=== PATIENT | male | born 1995 | race Caucasian/White ===

== ENCOUNTER 2017-08-13 08:38 | Inpatient (IN) | payer OTHER ==
[~2017-08-13] VITALS: Ht 180.3 cm; Wt 140.6 kg
[2017-08-13] MEDS ORDERED: MORPHINE SULFATE 4 MG/ML DISP.SYRIN. IV/SQ PRN (09:00)
[2017-08-13] MEDS ORDERED: ASPIRIN 325 MG TABLET PO ONE (09:00)
[2017-08-13] MEDS ORDERED: IV NORMAL SALINE 1000ML BAG 1,000 ML IV ONE ×2 (09:00→14:45)
[2017-08-13] MEDS ORDERED: MORPHINE SULFATE 4 MG/ML DISP.SYRIN. ONE (09:02)
[2017-08-13 09:04] LABS: BASO # 0.1 x10^3/uL (0.0-0.2); BASO % 1 % (0-3); EOS % 0 % (0-3); HEMATOCRIT 48.1 % (39.0-53.0); HEMOGLOBIN 16.8 g/dL (13.0-17.5); LYMPH % 18 % (24-48); MEAN CORPUSCULAR HEMOGLOBIN 29 pg (25-35); MEAN CORPUSCULAR HGB CONC 35 g/dL (31-37); MEAN CORPUSCULAR VOLUME 83 fL (79-100); MONO % 7 % (0-9); NEUT % 74 % (31-73); PLATELET COUNT 255 x10^3/uL (140-400); RED BLOOD COUNT 5.83 x10^6/uL (4.30-5.70); RED CELL DISTRIBUTION WIDTH 12.7 % (11.5-14.5); WHITE BLOOD COUNT 16.3 x10^3/uL (4.0-11.0)
[2017-08-13 09:14] LABS: INR 1.1 (0.8-1.1); PROTHROMBIN TIME PATIENT 13.7 SEC (11.7-14.0)
[2017-08-13 09:15] LABS: CALCIUM 9.4 mg/dL (8.5-10.1); CREATININE 1.1 mg/dL (0.7-1.3); GFR 82.2; POTASSIUM 3.4 mmol/L (3.5-5.1)
--- NOTE | 2017-08-13 09:17 | RAD ---
Chest, 2 views, 08/13/2017: History: Mid chest pain The heart size and pulmonary vascularity are normal. No pulmonary infiltrates are seen. There is no evidence of pleural fluid. IMPRESSION: No acute cardiopulmonary abnormality is detected.
--- NOTE | 2017-08-13 09:20 | EKG ---
[facility] [address] [place] [address] Test Date: 2017-08-13 Test Time: 08:45:21 Pat Name: MAHI MIN Department: Room: Gender: M Joint Cutter: : 1995 Requested By: ASHLEY DUARTE Order Number: [id number] Reading MD: Alber Lee Measurements Intervals Standard Rate: 106 P: 56 OR: 150 QRS: 21 QRSD: 126 T: -8 QT: 344 QTc: 459 Interpretive Statements SINUS TACHYCARDIA RIGHT BUNDLE BRANCH BLOCK Electronically Signed On 09-02-2017 16:49:20 CDT by Alber Lee
[2017-08-13 09:26] LABS: ALBUMIN 4.1 g/dL (3.4-5.0); ALBUMIN/GLOBULIN RATIO 0.8 (1.0-1.7); TOTAL BILIRUBIN 1.1 mg/dL (0.2-1.0)
[2017-08-13] MEDS ORDERED: IOHEXOL 300 MG/ML 75 ML VIAL IV ONE ×2 (10:30)
[2017-08-13] MEDS ORDERED: CONTRAST GIVEN MC PRN ×2 (10:30→14:15)
--- NOTE | 2017-08-13 11:29 | RAD ---
CTA of the chest with contrast, 08/13/2017: History: Chest pain Multidetector CT imaging was performed following an IV bolus injection of iodinated contrast material. Multiplanar reconstructions were produced. The degree of opacification of the pulmonary arteries is inadequate, apparently due to technical factors including patient size. Linear lucencies related to the ascending aorta are probably pulsation artifacts. There is soft tissue thickening along the left side of the main pulmonary artery suggesting intraluminal thrombus. No definite extension into the right or left main pulmonary arteries is seen. There is also a linear opacity in the medial aspect of the main pulmonary artery. The appearance suggests a web moreso than a pulsation artifact. Evaluation of the lobar and segmental pulmonary arteries is inadequate due to the poor contrast enhancement. No mediastinal adenopathy is seen. No pulmonary infiltrate is evident. There is no evidence of pleural fluid. IMPRESSION: 1. Abnormal soft tissue density within the left side of the main pulmonary artery suggesting mural thrombus. An additional linear lucency in the main pulmonary artery may be a web. The combination of findings suggest old or chronic pulmonary embolic disease. 2. Overall evaluation of the pulmonary arteries is inadequate due to poor contrast enhancement. Distal pulmonary emboli cannot be excluded on this study. Depending on the patient's renal function, this study could be repeated in attempt to better opacify the pulmonary arteries. Alternatively, VQ scanning may be helpful. PQRS Compliance Statement: One or more of the following individualized dose reduction techniques were utilized for this examination: 1. Automated exposure control 2. Adjustment of the mA and/or kV according to patient size 3. Use of iterative reconstruction technique
--- NOTE | 2017-08-13 11:31 | PHYS DOC ---
Past Medical History Past Medical History: No Pertinent History Past Surgical History: Other Additional Past Surgical Histo: Tubes in ears as child. Alcohol Use: Occasionally Drug Use: None Adult General Chief Complaint Chief Complaint: CHEST PAIN HPI HPI Patient is a 22 year old male who presents with chest pain. Patient reports onset of pain 2 days ago while at rest, occurring intermittently and sat time. He states pain is sharp/pressure-like to substernal chest with radiation to left arm, also reports shortness of breath and pain with deep breathing. Denies fevers or chills, cough, nausea or vomiting, diaphoresis, lower extremity pain or swelling. Denies previous history of similar symptoms. Nonsmoker, denies street drugs. No recent travel or immobilization. Father has history of CAD with stent placement 30s. History of CAD in grandparents on both sides of the family. He himself has no history of heart disease or DVT/PE. Does not have a primary care physician. Review of Systems Review of Systems Constitutional: Denies fever or chills Eyes: Denies change in visual acuity HENT: Denies nasal congestion or sore throat Respiratory: Denies cough, reports shortness of breath Cardiovascular: Reports chest pain, denies edema GI: Denies abdominal pain, nausea, vomiting, bloody stools or diarrhea Musculoskeletal: Denies back pain or joint pain Integument: Denies rash or skin lesions Neurologic: Denies headache, focal weakness or sensory changes Current Medications Current Medications Current Medications Medications (Trade) Dose Ordered Sig/Alexy Start Time Stop Time Status Last Admin Dose Admin Aspirin (Elliott Aspirin) 325 mg 1X ONCE 08/13/17 09:00 08/13/17 09:02 DC 08/13/17 09:07 325 MG Morphine Sulfate 4 mg STK-MED ONCE 08/13/17 09:02 08/13/17 09:03 DC Sodium Chloride 1,000 ml @ 1,000 mls/hr 1X ONCE 08/13/17 09:00 08/13/17 09:59 DC 08/13/17 09:08 1,000 MLS/HR Allergies Allergies Allergies Coded Allergies Type Severity Reaction Last Updated Verified No Known Drug Allergies 10/04/15 No Physical Exam Physical Exam Constitutional: Obese, no acute distress, non-toxic appearance. HENT: Normocephalic, atraumatic, bilateral external ears normal, oropharynx moist, nose normal. Eyes: conjunctiva normal, no discharge. Neck: supple, no stridor. Cardiovascular: RRR, no murmurs, no edema. Lungs & Thorax: LCTAB, no wheezing, no respiratory distress. No reproducible tenderness with palpation over sternum and left anterior chest wall. Abdomen: soft, nontender, nondistended. Skin: Warm, dry, no erythema, no rash. Back: No tenderness. Extremities: No tenderness, no edema. Calf tenderness or swelling, distal pulses palpable and lower extremities Neurologic: Alert and oriented X 3, no focal deficits noted. Psychologic: Affect normal, judgement normal, mood normal. Current Patient Data Vital Signs Vital Signs Date Time Temp Pulse Resp B/P (MAP) Pulse Ox O2 Delivery O2 Flow Rate FiO2 08/13/17 09:17 100 20 146/86 (106) 96 Room Air 08/13/17 08:52 98.2 98.2 Lab Values Laboratory Tests Test 08/13/17 08:50 White Blood Count 16.3 x10^3/uL (4.0-11.0) H Red Blood Count 5.83 x10^6/uL (4.30-5.70) H Hemoglobin 16.8 g/dL (13.0-17.5) Hematocrit 48.1 % (39.0-53.0) Mean Corpuscular Volume 83 fL (79-100) Mean Corpuscular Hemoglobin 29 pg (25-35) Mean Corpuscular Hemoglobin Concent 35 g/dL (31-37) Red Cell Distribution Width 12.7 % (11.5-14.5) Platelet Count 255 x10^3/uL (140-400) Neutrophils (%) (Auto) 74 % (31-73) H Lymphocytes (%) (Auto) 18 % (24-48) L Monocytes (%) (Auto) 7 % (0-9) Eosinophils (%) (Auto) 0 % (0-3) Basophils (%) (Auto) 1 % (0-3) Neutrophils # (Auto) 12.0 x10^3uL (1.8-7.7) H Lymphocytes # (Auto) 3.0 x10^3/uL (1.0-4.8) Monocytes # (Auto) 1.2 x10^3/uL (0.0-1.1) H Eosinophils # (Auto) 0.1 x10^3/uL (0.0-0.7) Basophils # (Auto) 0.1 x10^3/uL (0.0-0.2) Prothrombin Time 13.7 SEC (11.7-14.0) Prothrombin Time INR 1.1 (0.8-1.1) PTT 29 SEC (24-38) D-Dimer (Juana) 0.27 ug/mlFEU (0.00-0.50) Sodium Level 137 mmol/L (136-145) Potassium Level 3.4 mmol/L (3.5-5.1) L Chloride Level 100 mmol/L (98-107) Carbon Dioxide Level 29 mmol/L (21-32) Anion Gap 8 (6-14) Blood Urea Nitrogen 13 mg/dL (8-26) Creatinine 1.1 mg/dL (0.7-1.3) Estimated GFR (Cockcroft-Gault) 82.2 BUN/Creatinine Ratio 12 (6-20) Glucose Level 136 mg/dL (70-99) H Calcium Level 9.4 mg/dL (8.5-10.1) Magnesium Level 2.0 mg/dL (1.8-2.4) Total Bilirubin 1.1 mg/dL (0.2-1.0) H Aspartate Amino Transferase (AST) 13 U/L (15-37) L Alanine Aminotransferase (ALT) 40 U/L (16-63) Alkaline Phosphatase 90 U/L (46-116) Troponin I Quantitative < 0.017 ng/mL (0.000-0.055) BZ-Ykn-U-Type Natriuretic Peptide 57 pg/mL (0-124) Total Protein 9.0 g/dL (6.4-8.2) H Albumin 4.1 g/dL (3.4-5.0) Albumin/Globulin Ratio 0.8 (1.0-1.7) L Laboratory Tests 08/13/17 08:50 Laboratory Tests 08/13/17 08:50 EKG EKG Interpreted by me: Intraventricular block with T-wave inversions without ST depression in leads V1 through V4, as well as inferior T-wave inversions without ST depression in leads 3 and aVF, no ST elevation, no ectopy. No previous EKG available for comparison.[] Radiology/Procedures Radiology/Procedures PROCEDURE: CHEST PA & LATERAL Chest, 2 views, 08/13/2017: History: Mid chest pain The heart size and pulmonary vascularity are normal. No pulmonary infiltrates are seen. There is no evidence of pleural fluid. IMPRESSION: No acute cardiopulmonary abnormality is detected. DICTATED and SIGNED BY: FRANCES MENDOZA MD DATE: 08/13/17 0914[] Course & Med Decision Making Course & Med Decision Making Pertinent Labs and Imaging studies reviewed. (See chart for details) The patient presents with chest pain. Gave aspirin upon arrival as well as IV fluids. Obtained labs, EKG, CXR. EKG shows abnormal conduction pattern without old EKG for comparison. Negative troponin & CXR. He had ongoing pain & tachycardia. Recommend admission for further evaluation & treatment. He agrees of plan. CT angiogram of the chest pending at time of admission. Discussed with Dr. Beckwith of cardiology who cares for several family members , & he agrees with admission & will consult. Discussed with Dr. Ramírez who agrees to admit to inpatient status. The patient is admitted in stable condition. [] Dragon Disclaimer Dragon Disclaimer This electronic medical record was generated, in whole or in part, using a voice recognition dictation system. Departure Departure Impression: Primary Impression: Chest pain Additional Impression: Tachycardia Disposition: ADMITTED INPATIENT Admitting Physician: Opal Ramírez Condition: STABLE Referrals: NO PCP (PCP) Problem Qualifiers ASHLEY DUARTE MD Aug 13, 2017 11:31
[2017-08-13 11:35] VITALS: BP 144/75
[2017-08-13 11:36] VITALS: BP 144/75
[2017-08-13] MEDS ORDERED: ONDANSETRON PF 4 MG/2 ML VIAL. IV PRN (11:45)
[2017-08-13] MEDS ORDERED: ACETAMINOPHEN 325 MG TABLET. PO PRN (11:45)
[2017-08-13] MEDS ORDERED: ONDANSETRON ODT 4 MG TAB.RAPDIS. PO PRN (11:45)
[2017-08-13] MEDS ORDERED: POTASSIUM CHLORIDE 20 MEQ TABLET.ER. PO ONE (11:45)
[2017-08-13 11:49] LABS: BARBITURATES NEG (NEG); BENZODIAZEPINES NEG (NEG); CANNABINOIDS NEG (NEG); COCAINE NEG (NEG); METHADONE NEG (NEG); OPIATES POS (NEG); PHENCYCLIDINE NEG (NEG)
--- NOTE | 2017-08-13 11:55 | PDOC1 ---
History and Physical Date of Admission Date of Admission DATE: 08/13/17 TIME: 11:50 Identification/Chief Complaint Chief Complaint chest pain Problems: Source Source: Caregiver, Chart review, Patient History of Present Illness History of Present Illness 22 y.o obese male with no past medical no meds at home, but strong family hx, father had CABG and first heart attack at age 40s, started to have CP left sided to midsternal 2 days ago, 10./10 sharp, at rest, lasting hrs, claims could not catch his breath when that happened, no presyncopal sxs, no diaphoresis, Admitted hence forth for r.o ACS given strong fam hx, NO relief with morphine, radiated maybe to RT shoulder and abd. NO smokes, occasional drinker. CTA done shows ? mural thrombus or old PE. Pt denies recent long travels, surgery or past visits to urgent care or that nature for SOA or something similar. ABout to get lovenox therapeutic dose pending eval. Past Medical History Cardiovascular: No pertinent hx Pulmonary: No pertinent hx GI: No pertinent hx Heme/Onc: No pertinent hx Hepatobiliary: No pertinent hx Psych: No pertinent hx Rheumatologic: No pertinent hx Infectious disease: No pertinent hx ENT: No pertinent hx Renal/: No pertinent hx Endocrine: No pertinent hx Dermatology: No pertinent hx Past Surgical History Past Surgical History: No pertinent history Family History Family History: Heart Disease Social History Smoke: No ALCOHOL: occassional Drugs: None Current Problem List Problem List Problems Medical Problems: (1) Tachycardia Status: Acute Problems: Current Medications Current Medications Current Medications Aspirin (Elliott Aspirin) 325 mg 1X ONCE PO Last administered on 08/13/17 09:07 ; Start 08/13/17 at 09:00; Stop 08/13/17 at 09:02; Status DC Morphine Sulfate 4 mg PRN Q15MIN PRN IV/SQ PAIN GREATER THAN 3/10 Last administered on 08/13/17 09:07; Start 08/13/17 at 09:00; Stop 08/14/17 at 08:59 Sodium Chloride 1,000 ml @ 1,000 mls/hr 1X ONCE IV Last administered on 09:08; Start 08/13/17 at 09:00; Stop 08/13/17 at 09:59; Status DC Morphine Sulfate 4 mg STK-MED ONCE .ROUTE ; Start 08/13/17 at 09:02; Stop at 09:03; Status DC Iohexol (Omnipaque 300 Mg/ml) 75 ml 1X ONCE IV Last administered on 08/13/17t 10:38; Start 08/13/17 at 10:30; Stop 08/13/17 at 10:31; Status DC Iohexol (Omnipaque 300 Mg/ml) 75 ml 1X ONCE IV ; Start 08/13/17 at 10:30; Stop 08/13/17 at 10:31; Status DC Info (Do NOT chart on this entry -- for MONITORING) 1 each PRN DAILY PRN MC SEE COMMENTS; Start 08/13/17 at 10:30; Stop 08/15/17 at 10:29 Enoxaparin Sodium (Lovenox Per Pharmacy Treatment Dosing) 1 each PRN DAILY PRN MC SEE COMMENTS; Start 08/13/17 at 11:45 Enoxaparin Sodium (Lovenox 150mg Syringe) 140 mg BID SQ ; Start 08/13/17 at 12: 00 Allergies Allergies: Coded Allergies: No Known Drug Allergies (Unverified , 10/04/15) ROS Review of System as per HPI, all else is neg 14 pt reviewed Physical Exam General: Alert, Oriented X3, Cooperative, No acute distress HEENT: Atraumatic, PERRLA, EOMI Lungs: Clear to auscultation, Normal air movement Heart: S1S2, RRR, no thrills, no rubs, no gallops, no murmurs Cardiovascular: S1, S2 Abdomen: Normal bowel sounds, Soft, No tenderness, No hepatosplenomegaly, No masses Male Genitals Exam: normal genitalia, normal prostate Rectal Exam: not examined PELVIC: Nml ext genitalia Extremities: No clubbing, No cyanosis, No edema, Normal pulses, No tenderness/ swelling Skin: No rashes, No breakdown, No significant lesion Neuro: Normal gait Psych/Mental Status: Mental status NL, Mood NL Vitals Vitals Vital Signs Date Time Temp Pulse Resp B/P (MAP) Pulse Ox O2 Delivery O2 Flow Rate FiO2 08/13/17 11:36 98.2 101 20 144/75 (98) 96 Room Air 98.2 Labs Labs Laboratory Tests Test 08/13/17 08:50 White Blood Count 16.3 x10^3/uL (4.0-11.0) Red Blood Count 5.83 x10^6/uL (4.30-5.70) Hemoglobin 16.8 g/dL (13.0-17.5) Hematocrit 48.1 % (39.0-53.0) Mean Corpuscular Volume 83 fL (79-100) Mean Corpuscular Hemoglobin 29 pg (25-35) Mean Corpuscular Hemoglobin Concent 35 g/dL (31-37) Red Cell Distribution Width 12.7 % (11.5-14.5) Platelet Count 255 x10^3/uL (140-400) Neutrophils (%) (Auto) 74 % (31-73) Lymphocytes (%) (Auto) 18 % (24-48) Monocytes (%) (Auto) 7 % (0-9) Eosinophils (%) (Auto) 0 % (0-3) Basophils (%) (Auto) 1 % (0-3) Neutrophils # (Auto) 12.0 x10^3uL (1.8-7.7) Lymphocytes # (Auto) 3.0 x10^3/uL (1.0-4.8) Monocytes # (Auto) 1.2 x10^3/uL (0.0-1.1) Eosinophils # (Auto) 0.1 x10^3/uL (0.0-0.7) Basophils # (Auto) 0.1 x10^3/uL (0.0-0.2) Prothrombin Time 13.7 SEC (11.7-14.0) Prothromb Time International Ratio 1.1 (0.8-1.1) Activated Partial Thromboplast Time 29 SEC (24-38) D-Dimer (Juana) 0.27 ug/mlFEU (0.00-0.50) Sodium Level 137 mmol/L (136-145) Potassium Level 3.4 mmol/L (3.5-5.1) Chloride Level 100 mmol/L (98-107) Carbon Dioxide Level 29 mmol/L (21-32) Anion Gap 8 (6-14) Blood Urea Nitrogen 13 mg/dL (8-26) Creatinine 1.1 mg/dL (0.7-1.3) Estimated GFR (Cockcroft-Gault) 82.2 BUN/Creatinine Ratio 12 (6-20) Glucose Level 136 mg/dL (70-99) Calcium Level 9.4 mg/dL (8.5-10.1) Magnesium Level 2.0 mg/dL (1.8-2.4) Total Bilirubin 1.1 mg/dL (0.2-1.0) Aspartate Amino Transf (AST/SGOT) 13 U/L (15-37) Alanine Aminotransferase (ALT/SGPT) 40 U/L (16-63) Alkaline Phosphatase 90 U/L (46-116) Troponin I Quantitative < 0.017 ng/mL (0.000-0.055) YA-Qsp-Y-Type Natriuretic Peptide 57 pg/mL (0-124) Total Protein 9.0 g/dL (6.4-8.2) Albumin 4.1 g/dL (3.4-5.0) Albumin/Globulin Ratio 0.8 (1.0-1.7) Laboratory Tests Test 08/13/17 08:50 White Blood Count 16.3 x10^3/uL (4.0-11.0) Red Blood Count 5.83 x10^6/uL (4.30-5.70) Hemoglobin 16.8 g/dL (13.0-17.5) Hematocrit 48.1 % (39.0-53.0) Mean Corpuscular Volume 83 fL (79-100) Mean Corpuscular Hemoglobin 29 pg (25-35) Mean Corpuscular Hemoglobin Concent 35 g/dL (31-37) Red Cell Distribution Width 12.7 % (11.5-14.5) Platelet Count 255 x10^3/uL (140-400) Neutrophils (%) (Auto) 74 % (31-73) Lymphocytes (%) (Auto) 18 % (24-48) Monocytes (%) (Auto) 7 % (0-9) Eosinophils (%) (Auto) 0 % (0-3) Basophils (%) (Auto) 1 % (0-3) Neutrophils # (Auto) 12.0 x10^3uL (1.8-7.7) Lymphocytes # (Auto) 3.0 x10^3/uL (1.0-4.8) Monocytes # (Auto) 1.2 x10^3/uL (0.0-1.1) Eosinophils # (Auto) 0.1 x10^3/uL (0.0-0.7) Basophils # (Auto) 0.1 x10^3/uL (0.0-0.2) Prothrombin Time 13.7 SEC (11.7-14.0) Prothromb Time International Ratio 1.1 (0.8-1.1) Activated Partial Thromboplast Time 29 SEC (24-38) D-Dimer (Juana) 0.27 ug/mlFEU (0.00-0.50) Sodium Level 137 mmol/L (136-145) Potassium Level 3.4 mmol/L (3.5-5.1) Chloride Level 100 mmol/L (98-107) Carbon Dioxide Level 29 mmol/L (21-32) Anion Gap 8 (6-14) Blood Urea Nitrogen 13 mg/dL (8-26) Creatinine 1.1 mg/dL (0.7-1.3) Estimated GFR (Cockcroft-Gault) 82.2 BUN/Creatinine Ratio 12 (6-20) Glucose Level 136 mg/dL (70-99) Calcium Level 9.4 mg/dL (8.5-10.1) Magnesium Level 2.0 mg/dL (1.8-2.4) Total Bilirubin 1.1 mg/dL (0.2-1.0) Aspartate Amino Transf (AST/SGOT) 13 U/L (15-37) Alanine Aminotransferase (ALT/SGPT) 40 U/L (16-63) Alkaline Phosphatase 90 U/L (46-116) Troponin I Quantitative < 0.017 ng/mL (0.000-0.055) UQ-Mse-M-Type Natriuretic Peptide 57 pg/mL (0-124) Total Protein 9.0 g/dL (6.4-8.2) Albumin 4.1 g/dL (3.4-5.0) Albumin/Globulin Ratio 0.8 (1.0-1.7) VTE Prophylaxis Ordered VTE Prophylaxis Devices: Yes VTE Pharmacological Prophylaxi: Yes Assessment/Plan Assessment/Plan 1. Chest pain, high risk/strong family hx 2. ?MUral thrombus vs old PE on CTA PLAN: Admit, 2 MN Cycle CE CArds consult Check d dimer and venous dopplers Get pulmo opinion re CTA findings Trial of fentanyl - did not like morphine Dw parents too at bedside and RN JES Pacheco MD Aug 13, 2017 11:55
--- NOTE | 2017-08-13 12:44 | RAD ---
Bilateral lower extremity venous ultrasound, 08/13/2017: History: Pulmonary emboli Duplex evaluation of the deep veins in the lower extremities was performed including grayscale, color-flow and spectral Doppler analysis. The femoral and popliteal veins demonstrate normal compressibility and normal responses to distal augmentation maneuvers. Color imaging of those vessels shows no evidence of intraluminal clot. The visualized deep veins in both calves are patent. IMPRESSION: There is no sonographic evidence of deep vein thrombosis in either lower extremity.
--- NOTE | 2017-08-13 13:58 | CONS ---
DATE OF CONSULTATION: 08/13/2017 ATTENDING PHYSICIAN: Dr. Ramírez. REASON FOR CONSULTATION: Possible pulmonary embolus, chest pain. HISTORY OF PRESENT ILLNESS: The patient is a 22-year-old obese male who has no significant past medical history. He presented to the hospital after he had complained of substernal chest pain with radiation to the right neck on Thursday. It happened after a meal. However, the patient had recurrent symptom again yesterday, which was not precipitated after a meal. He had midsternal chest pain. It was sharp. It made him a bit short of breath. He has no cough, no fever, no chills. No syncopal episode. He was seen in the Emergency Room. He has a strong family history of coronary artery disease, his father had a bypass at age [address] angiogram was performed. I have reviewed the CT of the chest. There was suboptimal contrast to the pulmonary arteries and technically was not a good quality study. The radiologist reported an abnormal soft tissue density within the left side of the main pulmonary artery suggesting mural thrombus. There was additional linear lucency in the main pulmonary artery was also suggested indicating a possibility of web. The patient has no prior thromboembolic disease. He works as a [employer] office. He states he is active and does not have a sedentary lifestyle. He was started on Lovenox full dose. Cardiology was also consulted and I have been asked to see him for further evaluation. No family history of thromboembolic disease. PAST MEDICAL HISTORY: Essentially unremarkable. PAST SURGICAL HISTORY: None. FAMILY HISTORY: Father had bypass grafting at age 42 and then had stents placed a few years later. ALLERGIES: None. REVIEW OF SYSTEMS: Twelve points is obtained. Pertinent positives discussed in history of present illness, otherwise noncontributory. All systems that were negative were reviewed as well. PHYSICAL EXAMINATION: GENERAL: He is awake, following commands. VITAL SIGNS: Blood pressure is stable, pulse ox 96% on room air, afebrile. HEENT: Sclerae nonicteric. NECK: Supple. LUNGS: Clear. CARDIOVASCULAR: Regular rate and rhythm. ABDOMEN: Soft, obese. EXTREMITIES: With no pitting edema. LABORATORY DATA: Reviewed. White cell count 16.3, hemoglobin 16.8, platelets 255. His D-dimer is 0.27. His chemistries with a BUN of 13 and a creatinine of 1.1. IMPRESSION: 1. Chest pain with abnormal CT chest. I have reviewed the CT chest and discussed with Dr Siddiqui.There was motion artifact and suboptimal contrast, which makes it difficult to better assess for definite thromboembolic disease. There was some abnormal soft tissue density within the main pulmonary artery suggesting old mural thrombus. There was an additional ?linear lucency in the right main pulmonary artery, which could be a web. The patient's D-dimer is normal, which has a very high negative predictive value for acute PE and clinically suspicion for any acute pulmonary emboli is low. In order to rule out any chronic thromboembolic disease a V/Q scan would be a better test. However since current abnormality is seen on main pulmonary artery, repeat CTA chest would be a better test to r/ o any motion artifact. 2. Chest pain. Cardiac etiology cannot be ruled out due to his strong family history of coronary artery disease. His father had coronary artery bypass graft at age 42 and then had stents placed again 3 years later. 3. No significant history of tobacco use. RECOMMENDATIONS: 1. Continue full dose Lovenox at present. 2. Obtain repeat CTA chest.d/w Dr Siddiqui. ok to give contrast same day. Will hydrate. 3. Further recommendations after review of CTA. 4. Pursue cardiac workup. 5. Echo to assess for pulmonary HTN/ He has no symptoms of chronic thromboembolic disease. Discussed with the patient's family and RN, and we will follow along with you. GUSTAVO MONGE MD DR: IESHA/marianne JOB#: [id number] / [id number] SAURABH
[2017-08-13] MEDS ORDERED: IOHEXOL 350 MG/ML 100 ML VIAL. IV ONE (14:15)
--- NOTE | 2017-08-13 15:29 | RAD ---
CT of the chest with contrast, 08/13/2017: History: Tachycardia, shortness of breath Multidetector CT imaging was performed following IV bolus injection of iodinated contrast material. Multiplanar reconstructions were produced including coronal and sagittal MIP images. Comparison is made to a study of earlier the same day. The central pulmonary artery opacification is better than on the prior exam. These images again demonstrate abnormal medium density along the left side of the main pulmonary artery probably representing chronic mural thrombus. There is a thin linear filling defect in the right lateral aspect of the main pulmonary artery suggesting a chronic web. The right and left main pulmonary arteries and the lobar pulmonary arteries show no filling defects. No definite emboli are seen in the segmental pulmonary arteries, although some of these vessels, particularly in the lung bases are not well opacified and are partially obscured by respiratory motion artifacts. A small lucency related to a suprahilar vessel on the right appears to be related to a pulmonary vein. Linear lucencies relating to the ascending aorta are probably pulsation artifacts. The heart is at the upper limits of normal in size. There is no evidence of pericardial fluid. No mediastinal or hilar adenopathy is seen. Evaluation of the lung parenchyma is compromised by respiratory motion artifacts and the non inspiratory nature of the CTA images. No definite infiltrate or mass is seen. There is no evidence of pleural fluid. IMPRESSION: 1. Redemonstration of abnormalities in the main pulmonary artery as described on the CTA study of earlier in the day, again suggesting old or chronic pulmonary embolic disease. 2. No definite acute pulmonary emboli are identified, although the smaller pulmonary arteries are not well delineated in this large patient. 3. Probable pulsation related artifacts in the ascending aorta. Echocardiography may be useful for confirmation, if clinically indicated. PQRS Compliance Statement: One or more of the following individualized dose reduction techniques were utilized for this examination: 1. Automated exposure control 2. Adjustment of the mA and/or kV according to patient size 3. Use of iterative reconstruction technique
[2017-08-13] MEDS ORDERED: HEPARIN for IV BOLUS 10,000 UNIT/10 ML VIAL. IV ONE (17:45)
[2017-08-13] MEDS ORDERED: HEPARIN 25,000UTS/500ML PREMIX 500 ML IV PRN (17:45)
--- NOTE | 2017-08-13 17:58 | EKG ---
[facility] [address] [place] [address] Test Date: 2017-08-13 Test Time: 17:46:22 Pat Name: MAHI MIN Department: Room: 260 1 Gender: M Construction Sales Manager: : 1995 Requested By: ASHLEY DUARTE Order Number: [id number] Reading MD: Kyle Cardozo Measurements Intervals [place] Rate: 89 P: 18 MS: 162 QRS: 19 QRSD: 136 T: -2 QT: 374 QTc: 456 Interpretive Statements SINUS RHYTHM RIGHT BUNDLE BRANCH BLOCK Electronically Signed On 09-03-2017 9:13:50 CDT by Kyle Cardozo
[2017-08-13] MEDS ORDERED: ANTI-COAG MONITOR BY PHARMACY. MC PRN (18:00)
--- NOTE | 2017-08-13 18:26 | CARD ---
APPROVED REPORT EXAM: Two-dimensional and M-mode echocardiogram with Doppler and color Doppler. Other Information Quality : Good INDICATION Chest Pain 2D DIMENSIONS RVDd3.0 (2.9-3.5cm)Left Atrium(2D)3.8 (1.6-4.0cm) IVSd1.3 (0.7-1.1cm)Aortic Root(2D)3.2 (2.0-3.7cm) LVDd4.4 (3.9-5.9cm)LVOT Diameter2.2 (1.8-2.4cm) PWd1.2 (0.7-1.1cm)LVDs2.8 (2.5-4.0cm) FS (%) 30.0 %SV56.2 ml LVEF(%)60.0 (>50%) Tricuspid Valve RAP [id number] Peak Gr.27mmHg [id number] LEFT VENTRICLE The left ventricle is normal size. There is mild concentric left ventricular hypertrophy. The left ve ntricular systolic function is normal and the ejection fraction is within normal range. The Ejection Fraction is 60%. There is normal LV segmental wall motion. The left ventricular diastolic function an d filling is normal for age. RIGHT VENTRICLE The right ventricle is normal size. The right ventricular systolic function is normal. ATRIA The left atrium size is normal. The right atrium size is normal. The interatrial septum is intact wit h no evidence for an atrial septal defect or patent foramen ovale as noted on 2-D or Doppler imaging. AORTIC VALVE The aortic valve is normal in structure and function. Doppler and Color Flow revealed no significant aortic regurgitation. There is no significant aortic valvular stenosis. MITRAL VALVE The mitral valve is normal in structure and function. There is no evidence of mitral valve prolapse. There is no mitral valve stenosis. Doppler and Color Flow revealed no mitral valve regurgitation note d. TRICUSPID VALVE The tricuspid valve is normal in structure Doppler and Color Flow revealed physiological tricuspid re gurgitation. The PA pressure was estimated at 30 mmHg. There is no tricuspid valve stenosis. PULMONIC VALVE The pulmonary valve is normal in structure and function. Doppler and Color Flow revealed no pulmonic valvular regurgitation. There is no pulmonic valvular stenosis. GREAT VESSELS The aortic root is normal in size. The ascending aorta is normal in size. There is no evidence of any abnormalities in the ascending aorta that would suggest a dissection. No calcifications or thickened areas were seen Very poor visualization of the pulmonary artery The IVC was not visualized. PERICARDIAL EFFUSION There is no evidence of significant pericardial effusion. Critical Notification Critical Value: No <Conclusion> There is mild concentric left ventricular hypertrophy. The left ventricular systolic function is normal and the ejection fraction is within normal range. The Ejection Fraction is 60%. The left ventricular diastolic function and filling is normal for age. The right ventricle is normal size. The left atrium size is normal. The right atrium size is normal. The interatrial septum is intact with no evidence for an atrial septal defect or patent foramen ovale as noted on 2-D or Doppler imaging. The aortic valve is normal in structure and function. The mitral valve is normal in structure and function. Doppler and Color Flow revealed physiological tricuspid regurgitation. The PA pressure was estimated at 30 mmHg. The pulmonary valve is normal in structure and function. The ascending aorta is normal in size. There is no evidence of any abnormalities in the ascending aor ta that would suggest a dissection. No calcifications or thickened areas were seen Very poor visualization of the pulmonary artery There is no evidence of significant pericardial effusion.
--- NOTE | 2017-08-13 18:59 | PDOC2 ---
CONSULT Date of Consult Date of Consult DATE: 08/13/17 TIME: 18:49 Reason for Consult Reason for Consult: Chest pain Referring Physician Referring Physician: Dr Ramírez Identification/Chief Complaint Chief Complaint Chest pain and dyspnea Problems: History of Present Illness Reason for Visit: This patient is a 22-year-old gentleman that has no past significant history of any medical problems. He denies any recent trauma to the chest. The patient has a very strong family history of MIs coronary artery disease and lung problems. His father had to have bypass surgery at the age of 41. The patient developed a left sided chest pain that was severe with associated significant dyspnea. He was brought to the emergency room where he was seen and examined. His EKG showed a right bundle branch block we do not know if this is normal or old since he never had an EKG before. A CT of the chest was done which showed a possible mural thrombus in the pulmonary artery which seems to be chronic and abnormalities were seen in the aorta that could not be differentiated between an aortic dissection or motion artifact. I saw the patient and got an echocardiogram which shows a normal left ventricular function, no apparent aortic dissection and the pulmonary artery pressure was estimated to be 30 mmHg. Past Medical History Cardiovascular: No pertinent hx Pulmonary: No pertinent hx GI: No pertinent hx Heme/Onc: No pertinent hx Hepatobiliary: No pertinent hx Psych: No pertinent hx Rheumatologic: No pertinent hx Infectious disease: No pertinent hx ENT: No pertinent hx Renal/: No pertinent hx Endocrine: No pertinent hx Dermatology: No pertinent hx Past Surgical History Past Surgical History: No pertinent history Family History Family History: Heart Disease Social History No ALCOHOL: occassional Drugs: None Current Problem List Problem List Problems Medical Problems: (1) Tachycardia Status: Acute Current Medications Current Medications Current Medications Aspirin (Elliott Aspirin) 325 mg 1X ONCE PO Last administered on 08/13/17 09:07 ; Start 08/13/17 at 09:00; Stop 08/13/17 at 09:02; Status DC Morphine Sulfate 4 mg PRN Q15MIN PRN IV/SQ PAIN GREATER THAN 3/10 Last administered on 08/13/17 09:07; Start 08/13/17 at 09:00; Stop 08/13/17 at 11:50 ; Status DC Sodium Chloride 1,000 ml @ 1,000 mls/hr 1X ONCE IV Last administered on 09:08; Start 08/13/17 at 09:00; Stop 08/13/17 at 09:59; Status DC Morphine Sulfate 4 mg STK-MED ONCE .ROUTE ; Start 08/13/17 at 09:02; Stop at 09:03; Status DC Iohexol (Omnipaque 300 Mg/ml) 75 ml 1X ONCE IV Last administered on 08/13/17 10:38; Start 08/13/17 at 10:30; Stop 08/13/17 at 10:31; Status DC Iohexol (Omnipaque 300 Mg/ml) 75 ml 1X ONCE IV Last administered on 08/13/17 14:49; Start 08/13/17 at 10:30; Stop 08/13/17 at 10:31; Status DC Info (Do NOT chart on this entry -- for MONITORING) 1 each PRN DAILY PRN MC SEE COMMENTS; Start 08/13/17 at 10:30; Stop 08/15/17 at 10:29 Enoxaparin Sodium (Lovenox Per Pharmacy Treatment Dosing) 1 each PRN DAILY PRN MC SEE COMMENTS; Start 08/13/17 at 11:45; Stop 08/13/17 at 17:47; Status DC Enoxaparin Sodium (Lovenox 150mg Syringe) 140 mg BID SQ Last administered on 12:45; Start 08/13/17 at 12:00; Stop 08/13/17 at 17:46; Status DC Acetaminophen (Tylenol) 650 mg PRN Q6HRS PRN PO pain MILD; Start 08/13/17 at 11 :45 Ondansetron HCl (Zofran) 4 mg PRN Q6HRS PRN IV NAUSEA/VOMITING; Start 08/13/17 at 11:45 Ondansetron HCl (Zofran Odt) 4 mg PRN Q6HRS PRN PO NAUSEA/VOMITING 1ST CHOICE; Start 08/13/17 at 11:45 Fentanyl Citrate (Fentanyl 2ml Vial) 50 mcg PRN Q2HR PRN IV PAIN SEVERE; Start 08/13/17 at 11:45 Potassium Chloride (Klor-Con) 40 meq 1X ONCE PO Last administered on 12:43; Start 08/13/17 at 11:45; Stop 08/13/17 at 11:51; Status DC Iohexol (Omnipaque 350 Mg/ml) 100 ml 1X ONCE IV ; Start 08/13/17 at 14:15; Stop 08/13/17 at 14:16; Status DC Info (Do NOT chart on this entry -- for MONITORING) 1 each PRN DAILY PRN MC SEE COMMENTS; Start 08/13/17 at 14:15; Stop 08/15/17 at 14:14 Sodium Chloride 1,000 ml @ 100 mls/hr 1X ONCE IV Last administered on 15:39; Start 08/13/17 at 14:45; Stop 08/14/17 at 00:44 Heparin Sodium/ Dextrose 500 ml @ 0 mls/hr CONT PRN IV SEE I/O RECORD Last administered on 08/13/17 18:20; Start 08/13/17 at 17:45 Heparin Sodium (Porcine) (Heparin Sodium) 5,000 unit 1X ONCE IV Last administered on 08/13/17 18:20; Start 08/13/17 at 17:45; Stop 08/13/17 at 17:49 ; Status DC Info (Anti-Coagulation Monitoring By Pharmacy) 1 each PRN DAILY PRN MC SEE COMMENTS; Start 08/13/17 at 18:00 Allergies Allergies: Coded Allergies: No Known Drug Allergies (Unverified , 10/04/15) Physical Exam General: Alert, Oriented X3, Cooperative HEENT: Atraumatic, PERRLA Lungs: Clear to auscultation Heart: Regular rate, Normal S1, Normal S2 Abdomen: Normal bowel sounds, Soft Extremities: No edema Psych/Mental Status: Mental status NL Vitals VITALS Vital Signs Date Time Temp Pulse Resp B/P (MAP) Pulse Ox O2 Delivery O2 Flow Rate FiO2 08/13/17 11:36 98.2 101 20 144/75 (98) 96 Room Air 98.2 Labs Labs Laboratory Tests Test 08/13/17 08:50 08/13/17 11:00 08/13/17 16:50 White Blood Count 16.3 x10^3/uL (4.0-11.0) Red Blood Count 5.83 x10^6/uL (4.30-5.70) Hemoglobin 16.8 g/dL (13.0-17.5) Hematocrit 48.1 % (39.0-53.0) Mean Corpuscular Volume 83 fL (79-100) Mean Corpuscular Hemoglobin 29 pg (25-35) Mean Corpuscular Hemoglobin Concent 35 g/dL (31-37) Red Cell Distribution Width 12.7 % (11.5-14.5) Platelet Count 255 x10^3/uL (140-400) Neutrophils (%) (Auto) 74 % (31-73) Lymphocytes (%) (Auto) 18 % (24-48) Monocytes (%) (Auto) 7 % (0-9) Eosinophils (%) (Auto) 0 % (0-3) Basophils (%) (Auto) 1 % (0-3) Neutrophils # (Auto) 12.0 x10^3uL (1.8-7.7) Lymphocytes # (Auto) 3.0 x10^3/uL (1.0-4.8) Monocytes # (Auto) 1.2 x10^3/uL (0.0-1.1) Eosinophils # (Auto) 0.1 x10^3/uL (0.0-0.7) Basophils # (Auto) 0.1 x10^3/uL (0.0-0.2) Prothrombin Time 13.7 SEC (11.7-14.0) Prothromb Time International Ratio 1.1 (0.8-1.1) Activated Partial Thromboplast Time 29 SEC (24-38) D-Dimer (Juana) 0.27 ug/mlFEU (0.00-0.50) Sodium Level 137 mmol/L (136-145) Potassium Level 3.4 mmol/L (3.5-5.1) Chloride Level 100 mmol/L (98-107) Carbon Dioxide Level 29 mmol/L (21-32) Anion Gap 8 (6-14) Blood Urea Nitrogen 13 mg/dL (8-26) Creatinine 1.1 mg/dL (0.7-1.3) Estimated GFR (Cockcroft-Gault) 82.2 BUN/Creatinine Ratio 12 (6-20) Glucose Level 136 mg/dL (70-99) Calcium Level 9.4 mg/dL (8.5-10.1) Magnesium Level 2.0 mg/dL (1.8-2.4) Total Bilirubin 1.1 mg/dL (0.2-1.0) Aspartate Amino Transf (AST/SGOT) 13 U/L (15-37) Alanine Aminotransferase (ALT/SGPT) 40 U/L (16-63) Alkaline Phosphatase 90 U/L (46-116) Troponin I Quantitative < 0.017 ng/mL (0.000-0.055) < 0.017 ng/mL (0.000-0.055) FK-Quk-L-Type Natriuretic Peptide 57 pg/mL (0-124) Total Protein 9.0 g/dL (6.4-8.2) Albumin 4.1 g/dL (3.4-5.0) Albumin/Globulin Ratio 0.8 (1.0-1.7) Urine Opiates Screen Pos (NEG) Urine Methadone Screen Neg (NEG) Urine Barbiturates Neg (NEG) Urine Phencyclidine Screen Neg (NEG) Urine Amphetamine/Methamphetamine Neg (NEG) Urine Benzodiazepines Screen Neg (NEG) Urine Cocaine Screen Neg (NEG) Urine Cannabinoids Screen Neg (NEG) Urine Ethyl Alcohol Neg (NEG) Laboratory Tests Test 08/13/17 08:50 08/13/17 11:00 08/13/17 16:50 White Blood Count 16.3 x10^3/uL (4.0-11.0) Red Blood Count 5.83 x10^6/uL (4.30-5.70) Hemoglobin 16.8 g/dL (13.0-17.5) Hematocrit 48.1 % (39.0-53.0) Mean Corpuscular Volume 83 fL (79-100) Mean Corpuscular Hemoglobin 29 pg (25-35) Mean Corpuscular Hemoglobin Concent 35 g/dL (31-37) Red Cell Distribution Width 12.7 % (11.5-14.5) Platelet Count 255 x10^3/uL (140-400) Neutrophils (%) (Auto) 74 % (31-73) Lymphocytes (%) (Auto) 18 % (24-48) Monocytes (%) (Auto) 7 % (0-9) Eosinophils (%) (Auto) 0 % (0-3) Basophils (%) (Auto) 1 % (0-3) Neutrophils # (Auto) 12.0 x10^3uL (1.8-7.7) Lymphocytes # (Auto) 3.0 x10^3/uL (1.0-4.8) Monocytes # (Auto) 1.2 x10^3/uL (0.0-1.1) Eosinophils # (Auto) 0.1 x10^3/uL (0.0-0.7) Basophils # (Auto) 0.1 x10^3/uL (0.0-0.2) Prothrombin Time 13.7 SEC (11.7-14.0) Prothromb Time International Ratio 1.1 (0.8-1.1) Activated Partial Thromboplast Time 29 SEC (24-38) D-Dimer (Juana) 0.27 ug/mlFEU (0.00-0.50) Sodium Level 137 mmol/L (136-145) Potassium Level 3.4 mmol/L (3.5-5.1) Chloride Level 100 mmol/L (98-107) Carbon Dioxide Level 29 mmol/L (21-32) Anion Gap 8 (6-14) Blood Urea Nitrogen 13 mg/dL (8-26) Creatinine 1.1 mg/dL (0.7-1.3) Estimated GFR (Cockcroft-Gault) 82.2 BUN/Creatinine Ratio 12 (6-20) Glucose Level 136 mg/dL (70-99) Calcium Level 9.4 mg/dL (8.5-10.1) Magnesium Level 2.0 mg/dL (1.8-2.4) Total Bilirubin 1.1 mg/dL (0.2-1.0) Aspartate Amino Transf (AST/SGOT) 13 U/L (15-37) Alanine Aminotransferase (ALT/SGPT) 40 U/L (16-63) Alkaline Phosphatase 90 U/L (46-116) Troponin I Quantitative < 0.017 ng/mL (0.000-0.055) < 0.017 ng/mL (0.000-0.055) WT-Cyu-N-Type Natriuretic Peptide 57 pg/mL (0-124) Total Protein 9.0 g/dL (6.4-8.2) Albumin 4.1 g/dL (3.4-5.0) Albumin/Globulin Ratio 0.8 (1.0-1.7) Urine Opiates Screen Pos (NEG) Urine Methadone Screen Neg (NEG) Urine Barbiturates Neg (NEG) Urine Phencyclidine Screen Neg (NEG) Urine Amphetamine/Methamphetamine Neg (NEG) Urine Benzodiazepines Screen Neg (NEG) Urine Cocaine Screen Neg (NEG) Urine Cannabinoids Screen Neg (NEG) Urine Ethyl Alcohol Neg (NEG) Assessment/Plan Assessment/Plan This patient with a very strong family history of heart disease and MIs including his father requiring to have bypass surgery due to triple-vessel coronary artery disease at the age of 41 comes in with severe left sided chest pains, the EKG shows a right bundle branch block, his CT shows what seems to be a mural thrombus in the pulmonary artery. The left ventricular function is normal in the echocardiogram and we did not see any evidence of possible aortic dissection. 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 In addition to that because of the family history and the presence of the bundle branch block at this point I would also recommend to do a left heart catheterization in addition to right heart catheterization. I have discussed this with the patient and the family including the options and risks and he was decided to proceed with a heart catheterization. I will set up with a R & L heart catheterization to be done in the morning. Thank you very much for asking me to participate in the care of this patient. OTONIEL MONTIEL MD Aug 13, 2017 18:58
[2017-08-13 19:25] VITALS: BP 158/88
[2017-08-13] MEDS: fentaNYL PF VIAL 100 MCG/2 ML VIAL IV PRN ×2 (19:39→22:01)
[2017-08-13] MEDS: IV 1/2 NORMAL SALINE 1,000 ML IV SCH (21:18)
[2017-08-13] MEDS: oxyCODONE/APAP 5/325 1 TAB TABLET PO PRN (22:39)
[2017-08-13 23:25] VITALS: BP 153/83
[2017-08-14] VITALS (15 sets, daily range): BP systolic 103–152; BP diastolic 63–96
[2017-08-14] MEDS ORDERED: IOHEXOL 300 MG/ML 100ML VIAL. ONE (09:42)
[2017-08-14] MEDS ORDERED: LIDOCAINE 2% 20 ML VIAL. ONE (09:42)
[2017-08-14] MEDS ORDERED: fentaNYL PF VIAL 100 MCG/2 ML VIAL ONE (10:01)
[2017-08-14] MEDS ORDERED: MIDAZOLAM HCL/PF 5 MG/5 ML VIAL. ONE (10:02)
[2017-08-14] MEDS ORDERED: LIDOCAINE 2% 20 ML VIAL. IJ ONE (10:30)
[2017-08-14] MEDS ORDERED: MIDAZOLAM HCL/PF 5 MG/5 ML VIAL. IV ONE (10:30)
[2017-08-14] MEDS ORDERED: fentaNYL PF VIAL 100 MCG/2 ML VIAL IV ONE (10:30)
[2017-08-14] MEDS ORDERED: IOHEXOL 300 MG/ML 100ML VIAL. IART ONE (10:30)
[2017-08-14] MEDS ORDERED: diphenhydrAMINE 50 MG/ML VIAL ONE (10:48)
[2017-08-14] MEDS ORDERED: diphenhydrAMINE 50 MG/ML VIAL IVP ONE (11:00)
[2017-08-14] MEDS ORDERED: HYDROCORTISONE SOD SUCC/PF 100 MG/2 ML VIAL. IV ONE (11:00)
[2017-08-14] MEDS ORDERED: diphenhydrAMINE 50 MG/ML VIAL IM ONE (11:00)
[2017-08-14] MEDS: IV 1/2 NORMAL SALINE 1,000 ML IV SCH ×2 (11:00→21:20)
--- NOTE | 2017-08-14 11:31 | PDOC ---
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 Vital Signs Date Time Temp Pulse Resp B/P (MAP) Pulse Ox O2 Delivery O2 Flow Rate FiO2 08/14/17 10:57 92 19 95 Room Air 08/14/17 07:00 98.2 141/96 (111) 1.5 98.2 General: No acute distress Lungs: Clear Cardiovascular: S1 Abdomen: Soft Extremities: No Edema, Other (skin rash upper chest) Skin: Warm Labs Laboratory Tests Test 08/13/17 08:50 08/13/17 11:00 08/13/17 16:50 08/14/17 00:30 White Blood Count 16.3 x10^3/uL (4.0-11.0) Red Blood Count 5.83 x10^6/uL (4.30-5.70) Hemoglobin 16.8 g/dL (13.0-17.5) Hematocrit 48.1 % (39.0-53.0) Mean Corpuscular Volume 83 fL (79-100) Mean Corpuscular Hemoglobin 29 pg (25-35) Mean Corpuscular Hemoglobin Concent 35 g/dL (31-37) Red Cell Distribution Width 12.7 % (11.5-14.5) Platelet Count 255 x10^3/uL (140-400) Neutrophils (%) (Auto) 74 % (31-73) Lymphocytes (%) (Auto) 18 % (24-48) Monocytes (%) (Auto) 7 % (0-9) Eosinophils (%) (Auto) 0 % (0-3) Basophils (%) (Auto) 1 % (0-3) Neutrophils # (Auto) 12.0 x10^3uL (1.8-7.7) Lymphocytes # (Auto) 3.0 x10^3/uL (1.0-4.8) Monocytes # (Auto) 1.2 x10^3/uL (0.0-1.1) Eosinophils # (Auto) 0.1 x10^3/uL (0.0-0.7) Basophils # (Auto) 0.1 x10^3/uL (0.0-0.2) Prothrombin Time 13.7 SEC (11.7-14.0) Prothromb Time International Ratio 1.1 (0.8-1.1) Activated Partial Thromboplast Time 29 SEC (24-38) D-Dimer (Juana) 0.27 ug/mlFEU (0.00-0.50) Sodium Level 137 mmol/L (136-145) Potassium Level 3.4 mmol/L (3.5-5.1) Chloride Level 100 mmol/L (98-107) Carbon Dioxide Level 29 mmol/L (21-32) Anion Gap 8 (6-14) Blood Urea Nitrogen 13 mg/dL (8-26) Creatinine 1.1 mg/dL (0.7-1.3) Estimated GFR (Cockcroft-Gault) 82.2 BUN/Creatinine Ratio 12 (6-20) Glucose Level 136 mg/dL (70-99) Calcium Level 9.4 mg/dL (8.5-10.1) Magnesium Level 2.0 mg/dL (1.8-2.4) Total Bilirubin 1.1 mg/dL (0.2-1.0) Aspartate Amino Transf (AST/SGOT) 13 U/L (15-37) Alanine Aminotransferase (ALT/SGPT) 40 U/L (16-63) Alkaline Phosphatase 90 U/L (46-116) Troponin I Quantitative < 0.017 ng/mL (0.000-0.055) < 0.017 ng/mL (0.000-0.055) < 0.017 ng/mL (0.000-0.055) VA-Rwt-P-Type Natriuretic Peptide 57 pg/mL (0-124) Total Protein 9.0 g/dL (6.4-8.2) Albumin 4.1 g/dL (3.4-5.0) Albumin/Globulin Ratio 0.8 (1.0-1.7) Urine Opiates Screen Pos (NEG) Urine Methadone Screen Neg (NEG) Urine Barbiturates Neg (NEG) Urine Phencyclidine Screen Neg (NEG) Urine Amphetamine/Methamphetamine Neg (NEG) Urine Benzodiazepines Screen Neg (NEG) Urine Cocaine Screen Neg (NEG) Urine Cannabinoids Screen Neg (NEG) Urine Ethyl Alcohol Neg (NEG) Test 08/14/17 09:35 Heparin Anti-Xa Act, Unfractionated < 0.10 IU/mL (0.30-0.70) Laboratory Tests Test 08/13/17 16:50 08/14/17 00:30 08/14/17 09:35 Troponin I Quantitative < 0.017 ng/mL (0.000-0.055) < 0.017 ng/mL (0.000-0.055) Heparin Anti-Xa Act, Unfractionated < 0.10 IU/mL (0.30-0.70) Impression . 1. Chest pain with abnormal CT chest. I have reviewed the CT chest and discussed with Dr Siddiqui.There was motion artifact and suboptimal contrast, which makes it difficult to better assess for definite thromboembolic disease. There was some abnormal soft tissue density within the main pulmonary artery suggesting old mural thrombus. There was an additional ?linear lucency in the right main pulmonary artery, which could be a web. The patient's D-dimer is normal, which has a very high negative predictive value for acute PE and clinical suspicion for acute pulmonary emboli is low. I repeated CTA chest . Mural old thrombus was again seen in main stem 2. Chest pain. Cardiac etiology cannot be ruled out due to his strong family history of coronary artery disease. His father had coronary artery bypass graft at age 42 and then had stents placed again 3 years later. 3. No significant history of tobacco use. Plan . 1. would recommend 3-6 months of AC. Can be started on Eliquis later today. 2. repeat CTA chest in 2-3 months 3. Hypercoagulable panel ordered 4. s/p right and left heart cath. Officail report pending. d/w Dr Beckwith , clean coronaries. no significant pulmonary HTN. 5. Echo with PA pressure of 30 Discussed with the patient's family and RN,and GUSTAVO Guzman MD Aug 14, 2017 11:31
[2017-08-14] MEDS ORDERED: APIXABAN 5 MG TABLET. PO SCH ×2 (12:00→22:00)
--- NOTE | 2017-08-14 12:08 | PDOC ---
PROGRESS NOTES Chief Complaint Chief Complaint 1. Chest pain, high risk/strong family hx, s.p CLEAN CARDIAC cATH (10.6) 2. CP likely sec to PE 3. ?MUral thrombus, old PE on rpt CTA 4. MOrbid obesity BMI 43 History of Present Illness History of Present Illness Asleep post anesthesia from Right sided and left sided Heart cath CLEAN Rpt CTA same day shows the old PE, (unknown to pt), no new PE Given he was symptomatic witha cute SOA, AC (eliquis) x 3 mos- dw Dr. Virk PLAn: Start eliquis 10 BID x 7 days tehn 5 mg BID x 3 mos - dw pulmo and family RPt CBC and BMP anamika - (had 2 dyes in 1 day, CBC was 16 on admit, no infectious sxs) COont IVF thru the night Dw whole family at bedside Vitals Vitals Vital Signs Date Time Temp Pulse Resp B/P (MAP) Pulse Ox O2 Delivery O2 Flow Rate FiO2 08/14/17 11:00 98.4 89 18 118/77 (91) 91 Nasal Cannula 1.5 98.4 Physical Exam General: Alert, Oriented X3, Cooperative Heart: Regular rate, Normal S1, Normal S2 Lungs: Clear Abdomen: Normal bowel sounds, Soft Extremities: No edema Skin: No rashes, No breakdown, No significant lesion Labs LABS Laboratory Tests Test 08/13/17 16:50 08/14/17 00:30 08/14/17 09:35 Troponin I Quantitative < 0.017 ng/mL (0.000-0.055) < 0.017 ng/mL (0.000-0.055) Heparin Anti-Xa Act, Unfractionated < 0.10 IU/mL (0.30-0.70) Review of Systems Review of Systems asleep Assessment and Plan Assessmemt and Plan Problems Medical Problems: (1) Tachycardia Status: Acute Problems: Comment Review of Relevant I have reviewed the following items emili (where applicable) has been applied. Labs Laboratory Tests Test 08/13/17 08:50 08/13/17 11:00 08/13/17 16:50 08/14/17 00:30 White Blood Count 16.3 x10^3/uL (4.0-11.0) Red Blood Count 5.83 x10^6/uL (4.30-5.70) Hemoglobin 16.8 g/dL (13.0-17.5) Hematocrit 48.1 % (39.0-53.0) Mean Corpuscular Volume 83 fL (79-100) Mean Corpuscular Hemoglobin 29 pg (25-35) Mean Corpuscular Hemoglobin Concent 35 g/dL (31-37) Red Cell Distribution Width 12.7 % (11.5-14.5) Platelet Count 255 x10^3/uL (140-400) Neutrophils (%) (Auto) 74 % (31-73) Lymphocytes (%) (Auto) 18 % (24-48) Monocytes (%) (Auto) 7 % (0-9) Eosinophils (%) (Auto) 0 % (0-3) Basophils (%) (Auto) 1 % (0-3) Neutrophils # (Auto) 12.0 x10^3uL (1.8-7.7) Lymphocytes # (Auto) 3.0 x10^3/uL (1.0-4.8) Monocytes # (Auto) 1.2 x10^3/uL (0.0-1.1) Eosinophils # (Auto) 0.1 x10^3/uL (0.0-0.7) Basophils # (Auto) 0.1 x10^3/uL (0.0-0.2) Prothrombin Time 13.7 SEC (11.7-14.0) Prothromb Time International Ratio 1.1 (0.8-1.1) Activated Partial Thromboplast Time 29 SEC (24-38) D-Dimer (Juana) 0.27 ug/mlFEU (0.00-0.50) Sodium Level 137 mmol/L (136-145) Potassium Level 3.4 mmol/L (3.5-5.1) Chloride Level 100 mmol/L (98-107) Carbon Dioxide Level 29 mmol/L (21-32) Anion Gap 8 (6-14) Blood Urea Nitrogen 13 mg/dL (8-26) Creatinine 1.1 mg/dL (0.7-1.3) Estimated GFR (Cockcroft-Gault) 82.2 BUN/Creatinine Ratio 12 (6-20) Glucose Level 136 mg/dL (70-99) Calcium Level 9.4 mg/dL (8.5-10.1) Magnesium Level 2.0 mg/dL (1.8-2.4) Total Bilirubin 1.1 mg/dL (0.2-1.0) Aspartate Amino Transf (AST/SGOT) 13 U/L (15-37) Alanine Aminotransferase (ALT/SGPT) 40 U/L (16-63) Alkaline Phosphatase 90 U/L (46-116) Troponin I Quantitative < 0.017 ng/mL (0.000-0.055) < 0.017 ng/mL (0.000-0.055) < 0.017 ng/mL (0.000-0.055) MT-Lfi-P-Type Natriuretic Peptide 57 pg/mL (0-124) Total Protein 9.0 g/dL (6.4-8.2) Albumin 4.1 g/dL (3.4-5.0) Albumin/Globulin Ratio 0.8 (1.0-1.7) Urine Opiates Screen Pos (NEG) Urine Methadone Screen Neg (NEG) Urine Barbiturates Neg (NEG) Urine Phencyclidine Screen Neg (NEG) Urine Amphetamine/Methamphetamine Neg (NEG) Urine Benzodiazepines Screen Neg (NEG) Urine Cocaine Screen Neg (NEG) Urine Cannabinoids Screen Neg (NEG) Urine Ethyl Alcohol Neg (NEG) Test 08/14/17 09:35 Heparin Anti-Xa Act, Unfractionated < 0.10 IU/mL (0.30-0.70) Laboratory Tests Test 08/13/17 16:50 08/14/17 00:30 08/14/17 09:35 Troponin I Quantitative < 0.017 ng/mL (0.000-0.055) < 0.017 ng/mL (0.000-0.055) Heparin Anti-Xa Act, Unfractionated < 0.10 IU/mL (0.30-0.70) Medications Current Medications Aspirin (Elliott Aspirin) 325 mg 1X ONCE PO Last administered on 08/13/17 09:07 ; Start 08/13/17 at 09:00; Stop 08/13/17 at 09:02; Status DC Morphine Sulfate 4 mg PRN Q15MIN PRN IV/SQ PAIN GREATER THAN 3/10 Last administered on 08/13/17 09:07; Start 08/13/17 at 09:00; Stop 08/13/17 at 11:50 ; Status DC Sodium Chloride 1,000 ml @ 1,000 mls/hr 1X ONCE IV Last administered on 09:08; Start 08/13/17 at 09:00; Stop 08/13/17 at 09:59; Status DC Morphine Sulfate 4 mg STK-MED ONCE .ROUTE ; Start 08/13/17 at 09:02; Stop at 09:03; Status DC Iohexol (Omnipaque 300 Mg/ml) 75 ml 1X ONCE IV Last administered on 08/13/17 10:38; Start 08/13/17 at 10:30; Stop 08/13/17 at 10:31; Status DC Iohexol (Omnipaque 300 Mg/ml) 75 ml 1X ONCE IV Last administered on 08/13/17 14:49; Start 08/13/17 at 10:30; Stop 08/13/17 at 10:31; Status DC Info (Do NOT chart on this entry -- for MONITORING) 1 each PRN DAILY PRN MC SEE COMMENTS; Start 08/13/17 at 10:30; Stop 08/14/17 at 10:27; Status DC Enoxaparin Sodium (Lovenox Per Pharmacy Treatment Dosing) 1 each PRN DAILY PRN MC SEE COMMENTS; Start 08/13/17 at 11:45; Stop 08/13/17 at 17:47; Status DC Enoxaparin Sodium (Lovenox 150mg Syringe) 140 mg BID SQ Last administered on 12:45; Start 08/13/17 at 12:00; Stop 08/13/17 at 17:46; Status DC Acetaminophen (Tylenol) 650 mg PRN Q6HRS PRN PO pain MILD; Start 08/13/17 at 11 :45 Ondansetron HCl (Zofran) 4 mg PRN Q6HRS PRN IV NAUSEA/VOMITING; Start 08/13/17 at 11:45 Ondansetron HCl (Zofran Odt) 4 mg PRN Q6HRS PRN PO NAUSEA/VOMITING 1ST CHOICE; Start 08/13/17 at 11:45 Fentanyl Citrate (Fentanyl 2ml Vial) 50 mcg PRN Q2HR PRN IV PAIN SEVERE Last administered on 08/13/17 22:01; Start 08/13/17 at 11:45 Potassium Chloride (Klor-Con) 40 meq 1X ONCE PO Last administered on 12:43; Start 08/13/17 at 11:45; Stop 08/13/17 at 11:51; Status DC Iohexol (Omnipaque 350 Mg/ml) 100 ml 1X ONCE IV ; Start 08/13/17 at 14:15; Stop 08/13/17 at 14:16; Status DC Info (Do NOT chart on this entry -- for MONITORING) 1 each PRN DAILY PRN MC SEE COMMENTS; Start 08/13/17 at 14:15; Stop 08/15/17 at 14:14 Sodium Chloride 1,000 ml @ 100 mls/hr 1X ONCE IV Last administered on 15:39; Start 08/13/17 at 14:45; Stop 08/14/17 at 00:44; Status DC Heparin Sodium/ Dextrose 500 ml @ 0 mls/hr CONT PRN IV SEE I/O RECORD Last administered on 08/13/17 18:20; Start 08/13/17 at 17:45; Stop 08/14/17 at 11:45 ; Status DC Heparin Sodium (Porcine) (Heparin Sodium) 5,000 unit 1X ONCE IV Last administered on 08/13/17 18:20; Start 08/13/17 at 17:45; Stop 08/13/17 at 17:49 ; Status DC Info (Anti-Coagulation Monitoring By Pharmacy) 1 each PRN DAILY PRN MC SEE COMMENTS; Start 08/13/17 at 18:00 Sodium Chloride 1,000 ml @ 60 mls/hr [id number] IV Last administered on 21:18; Start 08/13/17 at 19:30 Oxycodone/ Acetaminophen (Percocet 5/325) 1 tab PRN Q4HRS PRN PO PAIN Last administered on 08/13/17 22:39; Start 08/13/17 at 22:15 Iohexol (Omnipaque 300 Mg/ml) 100 ml STK-MED ONCE .ROUTE ; Start 08/14/17 at 09: 42; Stop 08/14/17 at 09:43; Status DC Lidocaine HCl 20 ml STK-MED ONCE .ROUTE ; Start 08/14/17 at 09:42; Stop at 09:43; Status DC Heparin Sodium/ Sodium Chloride 500 ml @ As Directed STK-MED ONCE .ROUTE ; Start 08/14/17 at 09:43; Stop 08/14/17 at 09:44; Status DC Fentanyl Citrate (Fentanyl 2ml Vial) 100 mcg STK-MED ONCE .ROUTE ; Start at 10:01; Stop 08/14/17 at 10:02; Status DC Midazolam HCl (Versed) 5 mg STK-MED ONCE .ROUTE ; Start 08/14/17 at 10:02; Stop 08/14/17 at 10:03; Status DC Heparin Sodium/ Sodium Chloride 1,000 unit 1X ONCE IART Last administered on 08/14/17 10:54; Start 08/14/17 at 10:30; Stop 08/14/17 at 10:31; Status DC Midazolam HCl (Versed) 5 mg 1X ONCE IV Last administered on 08/14/17 10:55; Start 08/14/17 at 10:30; Stop 08/14/17 at 10:31; Status DC Fentanyl Citrate (Fentanyl 2ml Vial) 100 mcg 1X ONCE IV Last administered on 08/14/17 10:55; Start 08/14/17 at 10:30; Stop 08/14/17 at 10:31; Status DC Iohexol (Omnipaque 300 Mg/ml) 100 ml 1X ONCE IART Last administered on 10:54; Start 08/14/17 at 10:30; Stop 08/14/17 at 10:31; Status DC Lidocaine HCl 20 ml 1X ONCE IJ Last administered on 08/14/17 10:54; Start at 10:30; Stop 08/14/17 at 10:31; Status DC Diphenhydramine HCl (Benadryl) 25 mg 1X ONCE IM ; Start 08/14/17 at 11:00; Stop 08/14/17 at 11:01; Status Cancel Hydrocortisone Sodium Succinate (Solu-CORTEF) 100 mg 1X ONCE IV Last administered on 08/14/17 10:56; Start 08/14/17 at 11:00; Stop 08/14/17 at 11:01 ; Status DC Diphenhydramine HCl (Benadryl) 25 mg 1X ONCE IVP Last administered on 10:59; Start 08/14/17 at 11:00; Stop 08/14/17 at 11:01; Status DC Diphenhydramine HCl (Benadryl) 50 mg STK-MED ONCE .ROUTE ; Start 08/14/17 at 10: 48; Stop 08/14/17 at 10:58; Status DC Apixaban (Eliquis) 10 mg BID PO ; Start 08/14/17 at 12:00; Stop 08/20/17 at 21: 01 Apixaban (Eliquis) 5 mg BID PO ; Start 08/21/17 at 09:00 Vitals/I & O Vital Sign - Last 24 Hours 08/13/17 08/13/17 08/13/17 08/13/17 19:25 19:30 19:39 20:20 Temp 98.5 98.5 Pulse 100 Resp 17 16 16 B/P (MAP) 158/88 (111) Pulse Ox 95 O2 Delivery Room Air Room Air Room Air Room Air 08/13/17 08/13/17 08/14/17 08/14/17 22:01 23:25 03:25 07:00 Temp 98.6 98.4 98.2 98.6 98.4 98.2 Pulse 82 87 87 Resp 16 18 19 18 B/P (MAP) 153/83 (106) 152/63 (92) 141/96 (111) Pulse Ox 97 99 97 O2 Delivery Room Air Nasal Cannula Nasal Cannula Nasal Cannula O2 Flow Rate 1.5 1.5 1.5 08/14/17 08/14/17 08/14/17 08/14/17 08:05 10:55 10:57 11:00 Temp 98.4 98.4 Pulse 92 89 Resp 19 19 18 B/P (MAP) 118/77 (91) Pulse Ox 95 95 91 O2 Delivery Room Air Room Air Room Air Nasal Cannula O2 Flow Rate 1.5 JES SRINIVASAN MD Aug 14, 2017 12:08
[2017-08-14] MEDS ORDERED: diphenhydrAMINE HCL 25 MG CAPSULE PO ONE (13:45)
[2017-08-14] MEDS ORDERED: APIXABAN 5 MG TABLET. PO ONE (14:00)
[2017-08-14] MEDS: oxyCODONE/APAP 5/325 1 TAB TABLET PO PRN (15:40)
[2017-08-15 03:51] VITALS: BP 123/73
[2017-08-15 06:30] LABS: BASO # 0.1 x10^3/uL (0.0-0.2); BASO % 1 % (0-3); EOS % 1 % (0-3); HEMOGLOBIN 13.9 g/dL (13.0-17.5); LYMPH # 2.6 x10^3/uL (1.0-4.8); LYMPH % 19 % (24-48); MEAN CORPUSCULAR HEMOGLOBIN 29 pg (25-35); MEAN CORPUSCULAR HGB CONC 34 g/dL (31-37); MEAN CORPUSCULAR VOLUME 84 fL (79-100); MONO % 8 % (0-9); NEUT % 71 % (31-73); PLATELET COUNT 236 x10^3/uL (140-400); RED BLOOD COUNT 4.89 x10^6/uL (4.30-5.70); RED CELL DISTRIBUTION WIDTH 12.5 % (11.5-14.5); WHITE BLOOD COUNT 13.4 x10^3/uL (4.0-11.0)
[2017-08-15 06:32] LABS: CALCIUM 8.5 mg/dL (8.5-10.1); CREATININE 0.9 mg/dL (0.7-1.3); GFR 103.7; POTASSIUM 3.9 mmol/L (3.5-5.1)
[2017-08-15 07:00] VITALS: BP 137/91
[2017-08-15] MEDS ORDERED: NITROGLYCERIN SUBLINGUAL 0.4 MG BOTTLE OF 25. SL ONE ×2 (07:41→08:00)
[2017-08-15] MEDS: IV 1/2 NORMAL SALINE 1,000 ML IV SCH (07:56)
[2017-08-15] MEDS ORDERED: APIXABAN 5 MG TABLET. PO SCH (09:00)
[2017-08-15 11:00] VITALS: BP 151/71
[2017-08-15] MEDS ORDERED: APIX5TAB PO (11:03)
--- NOTE | 2017-08-15 14:02 | PDOC3 ---
Discharge Summary [facility] Date of Admission: Aug 13, 2017 Discharge Date: Aug 15, 2017 Admitting Diagnosis 1. Chest pain, s.p CLEAN CARDIAC cATH (10.6) 2. CP likely sec to PE, no history of PE 3. ?MUral thrombus, old PE on rpt CTA 4. MOrbid obesity BMI 43 Problems: Final Diagnosis CONSULTS pulm card Brief Hospital Course Mr. Rowland is a 22 old M, no PMH, no h/o PE or dvt, came to ER for chest pain, CTA showed multiple chronic PE. now stable, no chest pain. echo ok. dc home with eliquis, fu with pulm in 3 months to repeat CTA dc time 35min General: Alert, Oriented X3, Cooperative Heart: Regular rate, Normal S1, Normal S2 Lungs: Clear Abdomen: Normal bowel sounds, Soft Extremities: No edema Skin: No rashes, No breakdown, No significant lesion Patient History: FH: cardiovascular disease grandfather FH: coronary artery bypass surgery 33 FATHER (42) FH: myocardial infarction 33 FATHER (46) Unknown 33 FATHER Problems: Disposition home CONDITION AT DISCHARGE: Improved Diet regular Scheduled Apixaban (Eliquis), 5 MG PO BID Follow Up pulm in 1 month JOHN MEDRANO MD Aug 15, 2017 14:02
--- NOTE | 2017-08-15 15:30 | PDOC ---
PROGRESS NOTES Subjective Subjective The patient's cardiac catheterization report was dictated yesterday and is still not in the chart. He had normal coronaries, normal LV function, normal ascending aorta without evidence of a dissection, the RV systolic pressure was 32 mmHg. I recommended to start the patient on oral anticoagulation and this was done yesterday. Today the patient is feeling fine. Objective Objective Vital Signs Date Time Temp Pulse Resp B/P (MAP) Pulse Ox O2 Delivery O2 Flow Rate FiO2 08/15/17 11:00 98.7 95 22 151/71 (97) 95 Room Air 98.7 08/15/17 08:00 1.5 Physical Exam Physical Exam No significant changes and cardiac exam Assessment Assessment Patient is compensated cardiac-azar. He has a mural thrombus in the pulmonary artery therefore he is being discharged on Ellik Lara 5 mg by mouth twice a day. I would like to do at least 3 months of that. Problems Medical Problems: (1) Tachycardia Status: Acute Comment Review of Relevant I have reviewed the following items emili (where applicable) has been applied. Labs Laboratory Tests Test 08/13/17 16:50 08/14/17 00:30 08/14/17 09:35 08/15/17 03:45 Troponin I Quantitative < 0.017 ng/mL (0.000-0.055) < 0.017 ng/mL (0.000-0.055) Heparin Anti-Xa Act, Unfractionated < 0.10 IU/mL (0.30-0.70) White Blood Count 13.4 x10^3/uL (4.0-11.0) Red Blood Count 4.89 x10^6/uL (4.30-5.70) Hemoglobin 13.9 g/dL (13.0-17.5) Hematocrit 41.0 % (39.0-53.0) Mean Corpuscular Volume 84 fL (79-100) Mean Corpuscular Hemoglobin 29 pg (25-35) Mean Corpuscular Hemoglobin Concent 34 g/dL (31-37) Red Cell Distribution Width 12.5 % (11.5-14.5) Platelet Count 236 x10^3/uL (140-400) Neutrophils (%) (Auto) 71 % (31-73) Lymphocytes (%) (Auto) 19 % (24-48) Monocytes (%) (Auto) 8 % (0-9) Eosinophils (%) (Auto) 1 % (0-3) Basophils (%) (Auto) 1 % (0-3) Neutrophils # (Auto) 9.5 x10^3uL (1.8-7.7) Lymphocytes # (Auto) 2.6 x10^3/uL (1.0-4.8) Monocytes # (Auto) 1.1 x10^3/uL (0.0-1.1) Eosinophils # (Auto) 0.1 x10^3/uL (0.0-0.7) Basophils # (Auto) 0.1 x10^3/uL (0.0-0.2) Sodium Level 139 mmol/L (136-145) Potassium Level 3.9 mmol/L (3.5-5.1) Chloride Level 103 mmol/L (98-107) Carbon Dioxide Level 27 mmol/L (21-32) Anion Gap 9 (6-14) Blood Urea Nitrogen 14 mg/dL (8-26) Creatinine 0.9 mg/dL (0.7-1.3) Estimated GFR (Cockcroft-Gault) 103.7 Glucose Level 146 mg/dL (70-99) Calcium Level 8.5 mg/dL (8.5-10.1) Laboratory Tests Test 08/15/17 03:45 White Blood Count 13.4 x10^3/uL (4.0-11.0) Red Blood Count 4.89 x10^6/uL (4.30-5.70) Hemoglobin 13.9 g/dL (13.0-17.5) Hematocrit 41.0 % (39.0-53.0) Mean Corpuscular Volume 84 fL (79-100) Mean Corpuscular Hemoglobin 29 pg (25-35) Mean Corpuscular Hemoglobin Concent 34 g/dL (31-37) Red Cell Distribution Width 12.5 % (11.5-14.5) Platelet Count 236 x10^3/uL (140-400) Neutrophils (%) (Auto) 71 % (31-73) Lymphocytes (%) (Auto) 19 % (24-48) Monocytes (%) (Auto) 8 % (0-9) Eosinophils (%) (Auto) 1 % (0-3) Basophils (%) (Auto) 1 % (0-3) Neutrophils # (Auto) 9.5 x10^3uL (1.8-7.7) Lymphocytes # (Auto) 2.6 x10^3/uL (1.0-4.8) Monocytes # (Auto) 1.1 x10^3/uL (0.0-1.1) Eosinophils # (Auto) 0.1 x10^3/uL (0.0-0.7) Basophils # (Auto) 0.1 x10^3/uL (0.0-0.2) Sodium Level 139 mmol/L (136-145) Potassium Level 3.9 mmol/L (3.5-5.1) Chloride Level 103 mmol/L (98-107) Carbon Dioxide Level 27 mmol/L (21-32) Anion Gap 9 (6-14) Blood Urea Nitrogen 14 mg/dL (8-26) Creatinine 0.9 mg/dL (0.7-1.3) Estimated GFR (Cockcroft-Gault) 103.7 Glucose Level 146 mg/dL (70-99) Calcium Level 8.5 mg/dL (8.5-10.1) Medications Current Medications Aspirin (Elliott Aspirin) 325 mg 1X ONCE PO Last administered on 08/13/17 09:07 ; Start 08/13/17 at 09:00; Stop 08/13/17 at 09:02; Status DC Morphine Sulfate 4 mg PRN Q15MIN PRN IV/SQ PAIN GREATER THAN 3/10 Last administered on 08/13/17 09:07; Start 08/13/17 at 09:00; Stop 08/13/17 at 11:50 ; Status DC Sodium Chloride 1,000 ml @ 1,000 mls/hr 1X ONCE IV Last administered on 09:08; Start 08/13/17 at 09:00; Stop 08/13/17 at 09:59; Status DC Morphine Sulfate 4 mg STK-MED ONCE .ROUTE ; Start 08/13/17 at 09:02; Stop at 09:03; Status DC Iohexol (Omnipaque 300 Mg/ml) 75 ml 1X ONCE IV Last administered on 08/13/17 10:38; Start 08/13/17 at 10:30; Stop 08/13/17 at 10:31; Status DC Iohexol (Omnipaque 300 Mg/ml) 75 ml 1X ONCE IV Last administered on 08/13/17 14:49; Start 08/13/17 at 10:30; Stop 08/13/17 at 10:31; Status DC Info (Do NOT chart on this entry -- for MONITORING) 1 each PRN DAILY PRN MC SEE COMMENTS; Start 08/13/17 at 10:30; Stop 08/14/17 at 10:27; Status DC Enoxaparin Sodium (Lovenox Per Pharmacy Treatment Dosing) 1 each PRN DAILY PRN MC SEE COMMENTS; Start 08/13/17 at 11:45; Stop 08/13/17 at 17:47; Status DC Enoxaparin Sodium (Lovenox 150mg Syringe) 140 mg BID SQ Last administered on 12:45; Start 08/13/17 at 12:00; Stop 08/13/17 at 17:46; Status DC Acetaminophen (Tylenol) 650 mg PRN Q6HRS PRN PO pain MILD; Start 08/13/17 at 11 :45; Stop 08/15/17 at 14:08; Status DC Ondansetron HCl (Zofran) 4 mg PRN Q6HRS PRN IV NAUSEA/VOMITING; Start 08/13/17 at 11:45; Stop 08/15/17 at 14:08; Status DC Ondansetron HCl (Zofran Odt) 4 mg PRN Q6HRS PRN PO NAUSEA/VOMITING 1ST CHOICE; Start 08/13/17 at 11:45; Stop 08/15/17 at 14:08; Status DC Fentanyl Citrate (Fentanyl 2ml Vial) 50 mcg PRN Q2HR PRN IV PAIN SEVERE Last administered on 08/13/17 22:01; Start 08/13/17 at 11:45; Stop 08/15/17 at 14:08 ; Status DC Potassium Chloride (Klor-Con) 40 meq 1X ONCE PO Last administered on 12:43; Start 08/13/17 at 11:45; Stop 08/13/17 at 11:51; Status DC Iohexol (Omnipaque 350 Mg/ml) 100 ml 1X ONCE IV ; Start 08/13/17 at 14:15; Stop 08/13/17 at 14:16; Status DC Info (Do NOT chart on this entry -- for MONITORING) 1 each PRN DAILY PRN MC SEE COMMENTS; Start 08/13/17 at 14:15; Stop 08/15/17 at 14:08; Status DC Sodium Chloride 1,000 ml @ 100 mls/hr 1X ONCE IV Last administered on 15:39; Start 08/13/17 at 14:45; Stop 08/14/17 at 00:44; Status DC Heparin Sodium/ Dextrose 500 ml @ 0 mls/hr CONT PRN IV SEE I/O RECORD Last administered on 08/13/17 18:20; Start 08/13/17 at 17:45; Stop 08/14/17 at 11:45 ; Status DC Heparin Sodium (Porcine) (Heparin Sodium) 5,000 unit 1X ONCE IV Last administered on 08/13/17 18:20; Start 08/13/17 at 17:45; Stop 08/13/17 at 17:49 ; Status DC Info (Anti-Coagulation Monitoring By Pharmacy) 1 each PRN DAILY PRN MC SEE COMMENTS; Start 08/13/17 at 18:00; Stop 08/15/17 at 14:08; Status DC Sodium Chloride 1,000 ml @ 100 mls/hr Q10H IV Last administered on 08/15/17 07:56; Start 08/13/17 at 19:30; Stop 08/15/17 at 11:45; Status DC Oxycodone/ Acetaminophen (Percocet 5/325) 1 tab PRN Q4HRS PRN PO PAIN Last administered on 08/14/17 15:40; Start 08/13/17 at 22:15; Stop 08/15/17 at 14:08 ; Status DC Iohexol (Omnipaque 300 Mg/ml) 100 ml STK-MED ONCE .ROUTE ; Start 08/14/17 at 09: 42; Stop 08/14/17 at 09:43; Status DC Lidocaine HCl 20 ml STK-MED ONCE .ROUTE ; Start 08/14/17 at 09:42; Stop at 09:43; Status DC Heparin Sodium/ Sodium Chloride 500 ml @ As Directed STK-MED ONCE .ROUTE ; Start 08/14/17 at 09:43; Stop 08/14/17 at 09:44; Status DC Fentanyl Citrate (Fentanyl 2ml Vial) 100 mcg STK-MED ONCE .ROUTE ; Start at 10:01; Stop 08/14/17 at 10:02; Status DC Midazolam HCl (Versed) 5 mg STK-MED ONCE .ROUTE ; Start 08/14/17 at 10:02; Stop 08/14/17 at 10:03; Status DC Heparin Sodium/ Sodium Chloride 1,000 unit 1X ONCE IART Last administered on 08/14/17 10:54; Start 08/14/17 at 10:30; Stop 08/14/17 at 10:31; Status DC Midazolam HCl (Versed) 5 mg 1X ONCE IV Last administered on 08/14/17 10:55; Start 08/14/17 at 10:30; Stop 08/14/17 at 10:31; Status DC Fentanyl Citrate (Fentanyl 2ml Vial) 100 mcg 1X ONCE IV Last administered on 08/14/17 10:55; Start 08/14/17 at 10:30; Stop 08/14/17 at 10:31; Status DC Iohexol (Omnipaque 300 Mg/ml) 100 ml 1X ONCE IART Last administered on 10:54; Start 08/14/17 at 10:30; Stop 08/14/17 at 10:31; Status DC Lidocaine HCl 20 ml 1X ONCE IJ Last administered on 08/14/17 10:54; Start at 10:30; Stop 08/14/17 at 10:31; Status DC Diphenhydramine HCl (Benadryl) 25 mg 1X ONCE IM ; Start 08/14/17 at 11:00; Stop 08/14/17 at 11:01; Status Cancel Hydrocortisone Sodium Succinate (Solu-CORTEF) 100 mg 1X ONCE IV Last administered on 08/14/17 10:56; Start 08/14/17 at 11:00; Stop 08/14/17 at 11:01 ; Status DC Diphenhydramine HCl (Benadryl) 25 mg 1X ONCE IVP Last administered on 10:59; Start 08/14/17 at 11:00; Stop 08/14/17 at 11:01; Status DC Diphenhydramine HCl (Benadryl) 50 mg STK-MED ONCE .ROUTE ; Start 08/14/17 at 10: 48; Stop 08/14/17 at 10:58; Status DC Apixaban (Eliquis) 10 mg BID PO ; Start 08/14/17 at 12:00; Stop 08/14/17 at 13: 38; Status DC Apixaban (Eliquis) 5 mg BID PO ; Start 08/21/17 at 09:00; Stop 08/21/17 at 09: 00; Status DC Apixaban (Eliquis) 5 mg BID PO ; Start 08/14/17 at 22:00; Stop 08/14/17 at 22:00 ; Status DC Apixaban (Eliquis) 10 mg 1X ONCE PO Last administered on 08/14/17 14:12; Start 08/14/17 at 14:00; Stop 08/14/17 at 14:01; Status DC Diphenhydramine HCl (Benadryl) 50 mg 1X ONCE PO Last administered on 14:12; Start 08/14/17 at 13:45; Stop 08/14/17 at 13:46; Status DC Apixaban (Eliquis) 5 mg BID PO Last administered on 08/15/17 09:07; Start 08/15/17 at 09:00; Stop 08/15/17 at 14:08; Status DC Nitroglycerin (Nitrostat) 0.4 mg STK-MED ONCE SL ; Start 08/15/17 at 07:41; Stop 08/15/17 at 07:42; Status DC Active Scripts Active Eliquis (Apixaban) 5 Mg Tablet 5 Mg PO BID 60 Days Vitals/I & O Vital Sign - Last 24 Hours 08/14/17 08/14/17 08/14/17 08/14/17 15:40 16:00 17:00 19:37 Temp 97.7 97.7 Pulse 90 77 Resp 21 B/P (MAP) 137/63 (87) 130/64 (86) Pulse Ox 94 93 94 97 O2 Delivery Room Air Room Air Room Air Room Air 08/14/17 08/14/17 08/15/17 08/15/17 20:38 23:00 03:51 07:00 Temp 98.9 98.4 98.9 98.4 Pulse 82 97 94 Resp 24 22 22 B/P (MAP) 138/76 (96) 123/73 (90) 137/91 (106) Pulse Ox 98 96 98 O2 Delivery Room Air Room Air Room Air Room Air 08/15/17 08/15/17 08:00 11:00 Temp 98.7 98.7 Pulse 95 Resp 22 B/P (MAP) 151/71 (97) Pulse Ox 95 O2 Delivery Room Air Room Air O2 Flow Rate 1.5 OTONIEL MONTIEL MD Aug 15, 2017 15:30
--- NOTE | 2017-08-20 16:08 | CARD ---
APPROVED REPORT Conclusion Sex/Age : M/22Y Height/Weight : cm/kg Patient Name : MECHELLE Abdul Study Date : 2017-08-14 BSA : Requesting Name : LEFT HEART CATHETERIZATION LV Date of : 1995 Department : CARDIOLOGY --< Approved Report > Procedure(s) performed: MODERATE SEDATION: 43 MINUTES PROCEDURE NARRATIVE This patient is a 22-year-old gentleman that has no prior history of heart disease. He is overweight and has a very strong family history for [place] sensitive. Coronary artery disease. His father had Bypass at the age of 41. The patient came in with severe crushing chest pain and dyspnea. The initial workup he was found to h ave an abnormal CT of the chest that showed a possible mural thrombus in the pulmonary artery and abn ormalities in the ascending aorta that could not be differentiated between motion artifact or a disse ction. After initial evaluation it was decided to do a right and left heart catheterization to further evalu ate the patient. Because of the mural thrombus in the pulmonary artery I am not going to cross the pulmonic valve with the catheter but just measure pressures in the right ventricle to get the systolic pressure in the R V. As was all discussed with the patient as well as his family and an informed consent was obtained. The patient was brought to the catheter lab and was the patient in the supine position the right groi n area was prepped and draped in the usual fashion. The area was infiltrated with Xylocaine and then using Seldinger technique a sheath was inserted into the femoral vein and a known total femoral artery. A [place]-Tere catheter was then advanced all the way to the RA and then into the RV. Pullback pressures were down from the RV to the RA. The [place]-Tere was then removed. A left Anatoly catheter was then utilized to engage the left coronary os and views of the left coron rogelio artery were then done. A right Anatoly catheter was then utilized to engage the right coronary os and views of the right cor onary artery were then done. A pigtail catheter was then utilized to do a left ventriculogram. Following the ventriculogram pullback pressures were down from the LV to the AO. An ascending aortogram was then done. After all the pictures were reviewed as well as the pressures I decided to terminate the procedure at this point therefore the sheaths were pulled and Angio-Seal collagen plugs were then deployed. There was no bleeding after this therefore a dressing was applied to the groin and the patient was tr ansferred back to his room in satisfactory condition after tolerating the procedure rather well. Findings: Pressures: RV: 32/2 mmHg Mean RA: 5 mmHg Aorta: 116/58 mmHg LV: 116/4 mmHg LVEDP: 8 mmHg Coronaries: Left main is normal. The LAD is normal. The circumflex is normal. The RCA is dominant and normal. Ventriculogram: The left ventricle is normal in size with a normal left ventricular ejection fraction of 65% Ascending aortogram: The ascending aorta is normal in size there was no evidence seen that would sugg est a possible dissection of the ascending aorta. Conclusion This patient has normal coronaries, the RV systolic pressure was 32 mmHg which correlates with the ec hocardiogram. There was no evidence of an ascending aortic dissection. In view of the findings I would treat the patient medically. For the mural thrombus I would suggest a nticoagulation for 3 months and then depending on the progression of the patient will then decide if he needs to have further workup and treatment. Electronically Approved : 08/20/2017 14:48:24
[2017-08-21] MEDS ORDERED: APIXABAN 5 MG TABLET. PO SCH (09:00)
== END 2017-08-15 13:50 | disposition home or self-care (01) | DRG 286 ==
LOC: ER 08:38 → 2 SOUTH 10:14
PROVIDERS: ADMIT Internal Medicine; ATTEND Internal Medicine
PROC: 4A023N8 Measurement of Cardiac Sampling and Pressure, Bilateral, Percutaneous Approach (ICD-10-PCS; principal; 2017-08-14)
PROC: B2111ZZ Fluoroscopy of Multiple Coronary Arteries using Low Osmolar Contrast (ICD-10-PCS; 2017-08-14)
PROC: B2151ZZ Fluoroscopy of Left Heart using Low Osmolar Contrast (ICD-10-PCS; 2017-08-14)
PROC: 4A023N8 Measurement of Cardiac Sampling and Pressure, Bilateral, Percutaneous Approach (ICD-10-PCS; 2017-08-14)
DX: I51.3 Intracardiac thrombosis, not elsewhere classified (principal); I26.99 Other pulmonary embolism without acute cor pulmonale; Z68.41 Body mass index [BMI] 40.0-44.9, adult; I27.82 Chronic pulmonary embolism; E66.01 Morbid (severe) obesity due to excess calories; Z82.49 Family history of ischemic heart disease and other diseases of the circulatory system; Z95.1 Presence of aortocoronary bypass graft; Z79.01 Long term (current) use of anticoagulants
CPT/HCPCS: 36415; 71020; 71275; 80048; 80053; 80307; 83735; 83880; 84484; 85025; 85220; 85379; 85520; 85610; 85730; 86147; 93005; 93306; 93460; 93567; 93970; 96361; 96374; 99152; 99153; C1769; C1771; C1773; C1892; G0269; J1200; J1644; J1650; J1720; J2250; J2270; J3010; J7030; Q0163; Q9967; 99285-25; G0479; J2001